=== PATIENT | male | born 1965 | race Caucasian/White ===

== ENCOUNTER 2019-03-03 21:19 | Inpatient (IN) | payer OTHER ==
[2019-03-03] MEDS ORDERED: ONDANSETRON 4 MG/2 ML VIAL IVPUSH ONE (22:11)
[2019-03-03] MEDS ORDERED: SODIUM CHLORIDE 0.9% 500 ML INFUS.BAG IV ONE (22:11)
[2019-03-03] MEDS ORDERED: ACETAMINOPHEN 1000 MG/100 ML VIAL (NON FORMULARY) IVPB ONE (22:11)
[2019-03-03] MEDS ORDERED: morphine CARPU-JECT 2 MG/1 ML DISP.SYRIN IVPUSH ONE (22:13)
--- NOTE | 2019-03-03 22:13 | PDOC ---
Attending Attestation - Resident Resident Name: Stacie Snyder - ED Attending Attestation I have performed the following: I have examined & evaluated the patient, The case was reviewed & discussed with the resident, I agree w/resident's findings & plan - HPI HPI: 03/03/19 22:11 Pt comes with 10 episodes of diarrhea and 2 small vomiting episodes. Ate a turkey sandwich from the [facility] that he thinks was bad; no Bundy. He feels like the lettuce is coming up, - Physicial Exam PE: 03/03/19 22:12 Pt has diffuse abd pain; 03/03/19 22:14 Tachycardic; no high pitched gassy sounds. Pt has clear lungs No rebound and no guarding in any quadrant Pt feels warm to the touch. (We will get a rectal temp.) - Medical Decision Making 03/03/19 22:35 Pt likely has food poisoning; we will hydrate and treat with pain meds and reeval once labs are back 03/04/19 00:19 Pt is feeling better after 1 L NSS and meds. He will be treated with another L of saline, as he has HR of 116; pt will be sent home once his HR comes down. 03/04/19 00:27 Pt remains tachycardic despite 2L saline. He has LLQ pain. This could be colitis. He will get a CT scan to r/o pathology. 03/04/19 02:29 Patient Name: DANIELLE العراقي THIS IS A PRELIMINARY REPORT FROM [facility] DATE OF SERVICE: 2019-03-04 01:02:58 IMAGES: [id number] EXAM: ABDOMEN \\T\\ PELVIS CT WITH CONTR HISTORY: "Rule out infectious cause" COMPARISON: None. FINDINGS: There is no bowel obstruction. Negative for diverticulitis or colitis. Negative for appendicitis. However, both the large and small bowel are fluid-filled with mildly hyperemic hernandez. This is nonspecific but can suggest a generalized gastroenteritis. No free intraperitoneal air or free fluid. Normal kidneys and urinary tracts and urinary bladder. Liver is slightly enlarged and fatty. Normal spleen. Normal pancreas. No obvious gallbladder abnormalities. Normal adrenal glands. Osseous structures are intact. 03/04/19 06:26 Pt will be admitted, as he is tachycardic despite 3L NSS. He appears unwell and coninues to have abdominal discomfort. He has gastrenteritis and swollen intestines. Heart Score/ECG Review - ECG Intrepretation Rhythm: Regular Rhythm - [place]: Normal - P and GA Prominent R with upright T in V1 (true posterior ID): No Delta Wave(s) Present: No WPW: No - QRS Poor R Wave Progression: No Q Wave Present: No - ST and T Early Repolarization: No Non Specific ST-T Wave changes: No Flattened T Waves: No Prolonged Q-T Interval: No - ECG Impressions Normal ECG: No Non-specific ST Elevation: No Ischemic Changes: No Tachycardia: Sinus Torsades agnes Pointes: No WPW: No
--- NOTE | 2019-03-03 22:21 | PDOC ---
History of Present Illness - General Chief Complaint: Pain Stated Complaint: ABDOMINAL PAIN Time Seen by Provider: 03/03/19 22:03 - History of Present Illness Initial Comments: Dipesh Carrizales is a 53yo man with a PMH of pre-DM who presents to the ED with diffuse cramping abdominal pain, watery diarrhea, and nausea/vomiting since this afternoon. He states that he was feeling well earlier in the day, but ate a turkey sandwich in the afternoon that he says he thinks had gone bad. After eating the sandwich, he reports that he had about 10 episodes of watery diarrhea throughout the afternoon and evening. The stool has been brown and non- bloody. He also has intermittent, brief, sharp/cramping pains that occur around his abdomen. There is no particular location that the pains occur more often. Mr Carrizales also reports nausea, though he says that he has only had 2 very small episodes of emesis. He denies any recent fevers/chills, known sick contacts, recent travel, URI symptoms, cough, chest pain, SOB, or other recent symptoms. Past History - Past Medical History Allergies/Adverse Reactions: Allergies Allergy/AdvReac Type Severity Reaction Status Date / Time No Known Allergies Allergy Verified 03/03/19 21:23 COPD: No - Psycho Social/Smoking Cessation Hx Smoking History: Never smoked Review of Systems - Review of Systems Comments:: General: No fevers, no chills, no weight or appetite change, no malaise HEENT: No changes in vision, no changes in hearing, no congestion, no sore throat CV: No chest pain, no palpitations, no LE edema Pulm: No SOB, no cough, no wheezing GI: See HPI : No frequency, no urgency, no dysuria Musc: No back pain, no joint swelling, no recent injury Skin: No rash, no lesions, no erythema Endo: No excessive thirst, no heat/cold intolerance Heme: No unusual bruising or bleeding, no swollen glands Neuro: No syncope, no numbness/tingling, no focal weakness Vasc: No claudication Psych: No recent change in mood, no SI or HI *Physical Exam - Vital Signs Last Vital Signs Temp Pulse Resp BP Pulse Ox 97.3 F L 105 H 18 129/81 97 03/03/19 21:20 03/03/19 21:20 03/03/19 21:20 03/03/19 21:20 03/03/19 21:20 - Physical Exam General: Uncomfortable but in no acute distress HEENT: Atraumatic, PERRL, EOMI, MMM, voice normal Cards: RRR, no murmur appreciated Pulm: Comfortable on room air, clear to auscultation bilaterally Abd: Soft, nondistended. No focal tenderness, no rebound, no rigidity, no guarding : No CVA tenderness Ext: Atraumatic. No LE edema. ROM intact. WWP Skin: Normal color, no rashes or lesions Neuro: A&Ox3, CN grossly intact, normal speech, motor/sensory grossly intact and symmetric Psych: Mood appropriate to situation ED Treatment Course - LABORATORY CBC & Chemistry Diagram: 03/03/19 22:40 03/03/19 22:40 Medical Decision Making - Medical Decision Making 03/03/19 22:12 Dipesh Carrizales is a 53yo man with a PMH of pre-DM who presents to the ED with intermittent, diffuse, brief abdominal pains, frequent non-bloody watery diarrhea, and nausea/vomiting since eating a turkey sandwich this afternoon. He denies any recent fevers/chills, known sick contacts, recent travel, URI symptoms, cough, chest pain, SOB, or other recent symptoms. - Most likely gastroenteritis v food poisoning. No focal abdominal pain, no fever, no peritoneal signs. Diarrhea more prevalent than vomiting. - CBC, CMP, lipase - IVF, IV acetaminophen, zofran for symptoms 03/03/19 23:52 - Labs without concerning abnormalities. Slight leukocytosis at 12, likely due to vomiting and diarrhea - EKG w/ sinus tachycardia. HR 116, normal axis, normal intervals, no ST changes - Pt feels well, drinking water without difficulty, asking to be discharged - Due to persistent tachycardia, will give additional 1L bolus and reassess vitals - To be signed out to Dr Carver for the remainder of his ED care. Discussed with Dr Reggie Snyder PGY2 Discharge - Discharge Information Problems reviewed: Yes Clinical Impression/Diagnosis: Gastroenteritis Condition: Stable Disposition: HOME - Admission No - Follow up/Referral Referrals: Asa Paez MD [Primary Care Provider] - - Patient Discharge Instructions Patient Printed Discharge Instructions: DI for Viral Gastroenteritis -- Adult Additional Instructions: Discharge Instructions: You were seen in the emergency department for abdominal pain, diarrhea, and nausea. You most likely have food poisoning or gastroenteritis. This should improve over the next day or two without any treatment. Home Care and Follow Up: - Make sure you are drinking plenty of fluids - Do not worry about eating solid foods for the next day or two. You may stick to liquids including water, juice, sports drinks, Pedialyte, soup, popsicles, applesauce, etc - When you start eating, try bland foods such as bread and rice initially - Avoid dairy products, caffeine, alcohol, spicy foods, and greasy or fatty foods as these can irritate your stomach - Make an appointment to see your regular doctor if you are not feeling better within a few days - Seek immediate care for worsening symptoms, continued vomiting or diarrhea, inability to drink, dehydration, or any other medical emergency. - Post Discharge Activity
[2019-03-03] MEDS ORDERED: ACETAMINOPHEN INJECTION 100 ML IVPB ONE (22:24)
[2019-03-03] MEDS ORDERED: MORPHINE SULFATE 2 MG/ML VIAL ONE (22:24)
[2019-03-03] MEDS ORDERED: ONDANSETRON 4 MG/2 ML VIAL ONE (22:25)
[2019-03-03 22:55] LABS: BASO % 0.7 % (0-2.0); HEMATOCRIT 46.8 % (35.4-49); HEMOGLOBIN 15.9 GM/dL (11.7-16.9); LYMPH % 3.1 % (8-40); MCH 29.9 pg (25.7-33.7); MCHC 33.9 g/dl (32.0-35.9); MEAN CELL VOLUME 88.2 fl (80-96); MEAN PLT VOLUME 7.3 fl (7.5-11.1); MONO % 3.5 % (3.8-10.2); NEUT % 91.7 % (42.8-82.8); PLATELET COUNT 226 K/MM3 (134-434); RBC 5.31 M/mm3 (4.00-5.60); RDW 13.4 % (11.9-15.9)
[2019-03-03 23:22] LABS: ALBUMIN 4.4 g/dl (3.4-5.0); BILIRUBIN,TOTAL 0.8 mg/dL (0.2-1); BLOOD UREA NITROGEN 22.8 mg/dL (7-18); CALCIUM 9.1 mg/dL (8.5-10.1); CREATININE 1.3 mg/dL (0.55-1.3); TOT PROT 7.9 g/dl (6.4-8.2)
[2019-03-03] MEDS ORDERED: SODIUM CHLORIDE 1,000 ML IV STA (23:35)
--- NOTE | 2019-03-04 00:06 | PDOC ---
*Physical Exam - Vital Signs Last Vital Signs Temp Pulse Resp BP Pulse Ox 97.3 F L 105 H 18 129/81 97 03/03/19 21:20 03/03/19 21:20 03/03/19 21:20 03/03/19 21:20 03/03/19 21:20 ED Treatment Course - LABORATORY CBC & Chemistry Diagram: 03/07/19 10:45 03/07/19 10:45 - ADDITIONAL ORDERS Additional order review: Laboratory Results 03/03/19 03/03/19 22:40 22:40 Sodium 142 Potassium 4.0 Chloride 106 Carbon Dioxide 27 Anion Gap 8 BUN 22.8 H Creatinine 1.3 Est GFR (CKD-EPI)AfAm 71.69 Est GFR (CKD-EPI)NonAf 61.86 Random Glucose 115 H Calcium 9.1 Total Bilirubin 0.8 AST 32 ALT 49 Alkaline Phosphatase 61 Total Protein 7.9 Albumin 4.4 Lipase 106 03/03/19 22:40 RBC 5.31 MCV 88.2 MCHC 33.9 RDW 13.4 MPV 7.3 L Neutrophils % 91.7 H Lymphocytes % 3.1 L Monocytes % 3.5 L Eosinophils % 1.0 Basophils % 0.7 - Medications Given in the ED: ED Medications Discontinued Medications Generic Name Dose Route Start Last Admin Trade Name Rommelq PRN Reason Stop Dose Admin Acetaminophen 1,000 mg 03/03/19 22:11 03/03/19 22:52 Ofirmev Injection - IVPB 03/03/19 22:12 1,000 mg ONCE ONE Administration Morphine Sulfate 2 mg 03/03/19 22:13 03/03/19 22:51 Morphine Injection - IVPUSH 03/03/19 22:14 2 mg ONCE ONE Administration Ondansetron HCl 4 mg 03/03/19 22:11 03/03/19 22:52 Zofran Injection IVPUSH 03/03/19 22:12 4 mg ONCE ONE Administration Sodium Chloride 1,000 ml 03/03/19 22:11 03/03/19 22:53 Normal Saline - IV 03/03/19 22:12 1,000 ml ONCE ONE Administration Medical Decision Making - Medical Decision Making 03/04/19 04:53 Dipesh Carrizales is a 53yo man with a PMH of pre-DM who presents to the ED with diffuse cramping abdominal pain, watery diarrhea, and nausea/vomiting since this afternoon. Patient was reassessed. Thus far, the patient has received 3 L of NS with persistence of tachycardia. I ascertained the patient had a HR of 112 bpm after 3 liters at 4:30 am. The patient has continued abdominal pain and on physical exam continues to have pain throughout the 4 quadrants despite using tylenol 1 gram, morphine 2 mg, and toradol 30 mg. Will admit the patient for persistent tachycardia in the setting of dehydration with intractable pain. 03/04/19 04:54 Discharge - Discharge Information Problems reviewed: Yes Clinical Impression/Diagnosis: Gastroenteritis Condition: Stable Disposition: HOME - Follow up/Referral - Patient Discharge Instructions - Post Discharge Activity
[2019-03-04 01:48] LABS: ANISOCYTOSIS 0; HELMET CELLS 0; HOWELL-JOLLY BODIES 0; MACROCYTOSIS 0; OVALOCYTE 0; PLATELET ESTIMATE NORMAL; ROULEAU 0; SICKELED CELLS 0; TARGET CELLS 0; TEAR DROP CELLS 0; TOXIC GRANULATION 0
[2019-03-04] MEDS ORDERED: morphine CARPU-JECT 2 MG/1 ML DISP.SYRIN IVPUSH ONE (02:27)
[2019-03-04] MEDS ORDERED: KETOROLAC TROMETHAMINE 30 MG/1 ML VIAL IVPUSH ONE (02:31)
[2019-03-04] MEDS ORDERED: KETOROLAC TROMETHAMINE 30 MG/1 ML VIAL ONE (02:45)
[2019-03-04] MEDS ORDERED: SODIUM CHLORIDE 1,000 ML IV STA ×2 (03:20→04:53)
--- NOTE | 2019-03-04 05:36 | PN ---
Teaching Attending Note Name of Resident: Joseph Catherine ATTENDING PHYSICIAN STATEMENT I saw and evaluated the patient. I reviewed the resident's note and discussed the case with the resident. I agree with the resident's findings and plan as documented. SUBJECTIVE: Patient is a 53 year old man with a PMH of pre-DM who presents to the ER with diffuse cramping abdominal pain, watery diarrhea, and nausea/vomiting since this afternoon. He states that he was feeling well earlier in the day, but ate a turkey sandwich in the afternoon that he says he thinks had gone bad. After eating the sandwich, he reports that he had about 10 episodes of watery diarrhea throughout the afternoon and evening. The stool has been brown and non- bloody. He also has intermittent, brief, sharp/cramping pains that occur around his abdomen. There is no particular location that the pains occur more often. He also reports nausea, though he says that he has only had 2 very small episodes of vomiting. He denies any recent fevers, chills, known sick contacts, recent travel, URI symptoms, cough, chest pain or SOB. Denies tobacco, alcohol or illicit drug use. OBJECTIVE: Alert Vital Signs Period Temp Pulse Resp BP Sys/Mccain Pulse Ox Last 24 Hr 97.3 F 105 18 129/81 97 HEENT: No Jaundice, eye redness or discharge, PERRLA, EOMI. Normocephalic, atraumatic. External ears are normal and hearing is grossly intact. No nasal discharge. Neck: Supple, nontender. No palpable adenopathy or thyromegaly. No JVD Chest: Good effort. Clear to auscultation and percussion. Heart: Regular. No S3, rub or murmur Abdomen: Not distended, soft, nontender and no HSM. No rebound or guarding. Normal bowel sounds. Ext: Peripheral pulses intact. No leg edema. Skin: Warm and dry. No petechiae, rash or ecchymosis. Neuro: Alert. Oriented x3. CN 2-12 grossly intact. Sensation grossly intact in all four extremities and DTR are symmetric. Psych: Appropriate mood and affect. Good insight. Current Medications Generic Name Dose Route Start Last Admin Trade Name Freq PRN Reason Stop Dose Admin Sodium Chloride 1,000 mls @ 1,000 mls/hr 03/04/19 04:53 Normal Saline - IV 03/04/19 05:52 ASDIR STA Abnormal Lab Results 03/03/19 03/03/19 22:40 22:40 WBC 12.0 H MPV 7.3 L Absolute Neuts (auto) 11.0 H Neutrophils % 91.7 H Neutrophils % (Manual) 88.0 H Lymphocytes % 3.1 L Lymphocytes % (Manual) 1.0 L Monocytes % 3.5 L Monocytes % (Manual) 2 L BUN 22.8 H Random Glucose 115 H ASSESSMENT AND PLAN: 1. Food poisoning/Gastroenteritis - Findings consistent with food poisoning. CT scan of abdomen/pelvis report - "There is no bowel obstruction. Negative for diverticulitis or colitis. Negative for appendicitis. However, both the large and small bowel are fluid-filled with mildly hyperemic hernandez. This is nonspecific but can suggest a generalized gastroenteritis. No free intraperitoneal air or free fluid." Will continue IV Ringers lactate and withhold any antimotility agents for now. Getting Ketorolac, Zofran and Tylenol. Keep him NPO, get UA and consult GI. Send any stool samples for studies. Monitor and replete electrolytes. Will continue comprehensive care for all of patients comorbid conditions. 2. Prediabetes - Will check HbA1c and implement sliding scale insulin regimen. Provide comprehensive diabetes care with patient teaching and counseling about the importance of adherence to prescribed diabetes regimen, euglycemia, eye care and foot care. 3. Obesity Counseled on the risks associated with obesity. Will provide patient all the necessary assistance, counseling and positive reinforcement to facilitate weight loss. Consult child care centre manager. 4. DVT prophylaxis - Lovenox 40 mg SQ q 24 hours. 5. Advance directives - Full code
--- NOTE | 2019-03-04 07:18 | HP ---
CHIEF COMPLAINT: abdominal pain+diarrhea PCP: HISTORY OF PRESENT ILLNESS: Pt is a 53 y/o M with a past medical history of prediabetes and HLD who presented to [facility] due to diarrhea and abdominal pain. Pt endorses that around 3 pm yesterday afternoon, he consumed a turkey sandwich; approximately 2 hours afterwards, pt began to have multiple episodes of diarrhea (" too many to count ") associated with abdominal pain. Pt also endorses nausea and chills however denies fevers. Diarrhea is described as watery and non-bloody. Denies recent travel, upper respiratory tract symptoms, cough, shortness of breath, or chest pain. PMH as above SocialHx Denies T/A/D SurgHx- Denies FH- Father DM,HTN, Throat Cancer. Mother DM,HTN NKDA ER course was notable for: (1) CTAP---> Both large and small bowel are fluid-filled with mildly hyperemic hernnadez. this is a nonspecific but can suggest a generalized gastroenteritis (2) WBC--> 12 (3) HOME MEDICATIONS: REVIEW OF SYSTEMS CONSTITUTIONAL: PRESENT: chillS HEENT: Absent: rhinorrhea, nasal congestion, throat pain, throat swelling, difficulty swallowing, mouth swelling, ear pain, eye pain, visual changes CARDIOVASCULAR: Absent: chest pain, syncope, palpitations, irregular heart rate, lightheadedness , peripheral edema RESPIRATORY: Absent: cough, shortness of breath, dyspnea with exertion, orthopnea, wheezing, stridor, hemoptysis GASTROINTESTINAL: PRESENT abdominal pain, nausea, diarrhea GENITOURINARY: Absent: dysuria, frequency, urgency, hesitancy, hematuria, flank pain, genital pain MUSCULOSKELETAL: Absent: myalgia, arthralgia, joint swelling, back pain, neck pain SKIN: Absent: rash, itching, pallor HEMATOLOGIC/IMMUNOLOGIC: Absent: easy bleeding, easy bruising, lymphadenopathy, frequent infections ENDOCRINE: Absent: unexplained weight gain, unexplained weight loss, heat intolerance, cold intolerance NEUROLOGIC: Absent: headache, focal weakness or paresthesias, dizziness, unsteady gait, seizure, mental status changes, bladder or bowel incontinence PSYCHIATRIC: Absent: anxiety, depression, suicidal or homicidal ideation, hallucinations. PHYSICAL EXAMINATION Vital Signs - 24 hr 03/03/19 21:20 Temperature 97.3 F L Pulse Rate 105 H Respiratory 18 Rate Blood Pressure 129/81 O2 Sat by Pulse 97 Oximetry (%) GENERAL: NAD HEAD: Normal with no signs of trauma. EYES: EOMI Sclera Clear EARS, NOSE, THROAT: MMM LUNGS: CTA b/l HEART: RRR S1S2 ABDOMEN: Tenderness to deep palpation, BS Hyperactive MUSCULOSKELETAL: FROM LOWER EXTREMITIES: no CCE NEUROLOGICAL: Cranial nerves II-XII intact. Normal speech. PSYCHIATRIC: Cooperative. Good eye contact. Appropriate mood and affect. SKIN: Warm, dry, normal turgor, no rashes or lesions noted, normal capillary refill. Laboratory Results - last 24 hr 03/03/19 03/03/19 03/03/19 22:40 22:40 22:40 WBC 12.0 H RBC 5.31 Hgb 15.9 Hct 46.8 MCV 88.2 MCH 29.9 MCHC 33.9 RDW 13.4 Plt Count 226 MPV 7.3 L Absolute Neuts (auto) 11.0 H Neutrophils % 91.7 H Neutrophils % (Manual) 88.0 H Band Neutrophils % 7.0 Lymphocytes % 3.1 L Lymphocytes % (Manual) 1.0 L Monocytes % 3.5 L Monocytes % (Manual) 2 L Eosinophils % 1.0 Eosinophils % (Manual) 1.0 Basophils % 0.7 Basophils % (Manual) 0.0 Myelocytes % (Man) 0 Promyelocytes % (Man) 0 Blast Cells % (Manual) 0 Nucleated RBC % 0 Metamyelocytes 0 Hypochromia 0 Toxic Granulation 0 Dohle Bodies 0 Platelet Estimate Normal Polychromasia 0 Poikilocytosis 0 Basophilic Stippling 0 Anisocytosis 0 Microcytosis 0 Macrocytosis 0 Spherocytes 0 Sickle Cells 0 Target Cells 0 Tear Drop Cells 0 Ovalocytes 0 Stomatocytes 0 Helmet Cells 0 [place] Bodies 0 [place] Rings 0 Shanda Cells 0 Acanthocytes (Spur) 0 Rouleaux 0 Fragmented RBCs 0 Schistocytes 0 Sodium 142 Potassium 4.0 Chloride 106 Carbon Dioxide 27 Anion Gap 8 BUN 22.8 H Creatinine 1.3 Est GFR (CKD-EPI)AfAm 71.69 Est GFR (CKD-EPI)NonAf 61.86 Random Glucose 115 H Calcium 9.1 Total Bilirubin 0.8 AST 32 ALT 49 Alkaline Phosphatase 61 Total Protein 7.9 Albumin 4.4 Lipase 106 ASSESSMENT/PLAN: Pt is a 53 y/o M with a past medical history of prediabetes and HLD who presented to [facility] due to diarrhea and abdominal pain #Gastroenteritis - LR@125cc -There is no bowel obstruction. Negative for diverticulitis or colitis. Negative for appendicitis. However, both the large and small bowel are fluid- filled with mildly hyperemic hernandez. This is nonspecific but can suggest a generalized gastroenteritis. No free intraperitoneal air or free fluid." -Repeat CBC to asses for leukocytosis -No anti-motility agents as culprit may be bacterial -NPO -GI Consult -Stool for Ova and parasites, Stool for ova and parasites, WBCs, -Blood Cultures # Prediabetes -Will check HbA1c - sliding scale insulin regimen. #FEN -LR@125cc/hr Monitor electorlytes NPO # DVT ppx: Hep Sq TID #Dispo: Med-Surg Visit type - Emergency Visit Emergency Visit: Yes ED Registration Date: 03/04/19 Care time: The patient presented to the Emergency Department on the above date and was hospitalized for further evaluation of their emergent condition. - New Patient This patient is new to me today: Yes Date on this admission: 03/04/19 - Critical Care Critical Care patient: No ATTENDING PHYSICIAN STATEMENT I saw and evaluated the patient. I reviewed the resident's note and discussed the case with the resident. I agree with the resident's findings and plan as documented. SUBJECTIVE: OBJECTIVE: ASSESSMENT AND PLAN:
[2019-03-04 08:47] LABS: BASO % 0.4 % (0-2.0); EOS % 0.1 % (0-4.5); HEMATOCRIT 40.1 % (35.4-49); HEMOGLOBIN 13.6 GM/dL (11.7-16.9); LYMPH % 3.4 % (8-40); MCH 30.1 pg (25.7-33.7); MEAN CELL VOLUME 88.6 fl (80-96); MEAN PLT VOLUME 7.1 fl (7.5-11.1); MONO % 4.7 % (3.8-10.2); NEUT % 91.4 % (42.8-82.8); PLATELET COUNT 182 K/MM3 (134-434); RBC 4.52 M/mm3 (4.00-5.60); WHITE BLOOD COUNT 6.7 K/mm3 (4.0-10.0)
[2019-03-04 09:16] LABS: ALBUMIN 3.2 g/dl (3.4-5.0); BILIRUBIN,TOTAL 0.8 mg/dL (0.2-1); BLOOD UREA NITROGEN 21.6 mg/dL (7-18); CREATININE 1.1 mg/dL (0.55-1.3); MAGNESIUM 1.9 mg/dL (1.8-2.4); POTASSIUM 3.5 mmol/L (3.5-5.1)
[2019-03-04 09:17] LABS: CALCIUM 6.9 mg/dL (8.5-10.1)
[2019-03-04 09:35] LABS: INR 1.08 (0.83-1.09); PROTHROMBIN TIME (PATIENT) 12.7 SEC (9.7-13.0)
[2019-03-04 09:38] LABS: ACTIVATED PTT 30.6 SECONDS (25.2-36.5)
[2019-03-04 09:50] LABS: ANISOCYTOSIS 0; MACROCYTOSIS 0; PLATELET ESTIMATE NORMAL
[2019-03-04] MEDS ORDERED: LACTATED RINGERS SOLUTION 1000 ML INFUS.BAG IV SCH (10:00)
[2019-03-04] MEDS ORDERED: ACETAMINOPHEN 325 MG TABLET (FP) PO PRN (10:30)
--- NOTE | 2019-03-04 11:32 | PN ---
Progress Note, Physician Chief Complaint: He still complained of diarrhea History of Present Illness: 53 y/o M with a past medical history of prediabetes and HLD who presented to [facility] due to diarrhea and abdominal pain. Pt endorses that around 3 pm yesterday afternoon, he consumed a turkey sandwich; approximately 2 hours afterwards, on arrival T WBC elevated repeat trended normal not on any antibiotic he still complained of diarrhea. - Current Medication List Current Medications: Active Medications Acetaminophen (Tylenol -) 650 mg PO Q4H PRN PRN Reason: PAIN LEVEL 1-5 Famotidine/Sodium Chloride (Pepcid 20 Mg Premixed Ivpb -) 20 mg in 50 mls @ 100 mls/hr IVPB BID NIC Ketorolac Tromethamine (Toradol Injection -) 30 mg IVPUSH Q6H PRN PRN Reason: PAIN LEVEL 6-10 Lactated Ringer's (Lactated Ringers Solution) 125 ml IV DAILY NIC Ondansetron HCl (Zofran Injection) 4 mg IVPUSH Q6H PRN PRN Reason: NAUSEA - Objective Vital Signs: Vital Signs Temperature 99 F 03/04/19 08:50 Pulse Rate 109 H 03/04/19 08:50 Respiratory Rate 18 03/04/19 08:50 Blood Pressure 104/60 03/04/19 08:50 O2 Sat by Pulse Oximetry (%) 100 03/04/19 08:50 General: Middle-aged man , comfortable, not in distress, complaint of diarrhea and abdominal pain HEENT; mucous membranes moist, no anemia, no jaundice, PERRLA, no nystagmus Neck: No JVD, supple, no bruit, thyroid palpably normal, normal carotid pulsations. Chest: Nontender, clear to auscultation bilaterally. CVS: S1-S2 regular/irregular no murmur/gallop/rub Abdomen: Nondistended, diffuse mild tenderness, soft, bowel sounds present. Extremities: No edema., No cough tenderness, pulses present MANAGER OF CASE MANAGEMENT: AO X3 , no gross motor sensory deficit Labs: CBC, BMP 03/04/19 08:38 03/04/19 08:38 INR, PTT INR 1.08 (0.83-1.09) 03/04/19 08:38 Problem List - Problems (1) Gastroenteritis Assessment/Plan: Most likely due to preformed toxin, initial elevated WBC trended normal, afebrile, no indication for antibiotic, continue supportive care, IV hydration, pain control Zofran/Pepcid for nausea and vomiting. Problems reviewed: Yes Code(s): K52.9 - NONINFECTIVE GASTROENTERITIS AND COLITIS, UNSPECIFIED (2) Nausea & vomiting Assessment/Plan: Continue Zofran 4 mg every 6 hours as needed for nausea, famotidine 20 mg IV piggyback every 12 hours. Problems reviewed: Yes Code(s): R11.2 - NAUSEA WITH VOMITING, UNSPECIFIED
[2019-03-04] MEDS: KETOROLAC TROMETHAMINE 30 MG/1 ML VIAL IVPUSH PRN ×2 (12:28→19:03)
[2019-03-04] MEDS: ONDANSETRON 4 MG/2 ML VIAL IVPUSH PRN ×2 (12:28→21:04)
[2019-03-04 18:03] VITALS: BMI 32.1
[2019-03-04] MEDS: FAMOTIDINE 20 MG/50 ML IVPB 20 MG/50 ML MG IVPB SCH (21:29)
[2019-03-04] MEDS: LACTATED RINGERS SOLUTION 1,000 ML/1,000 ML INFUS.BAG IV SCH (22:49)
[2019-03-05] MEDS ORDERED: ACETAMINOPHEN 1000 MG/100 ML VIAL (NON FORMULARY) IVPB ONE (00:51)
[2019-03-05] MEDS ORDERED: SODIUM CHLORIDE 500 ML IV STA (00:52)
--- NOTE | 2019-03-05 01:01 | EKG ---
Test Reason : Blood Pressure : / mmHG Vent. Rate : 116 BPM Atrial Rate : 116 BPM P-R Int : 166 ms QRS Dur : 088 ms QT Int : 322 ms P-R-T Axes : 058 073 006 degrees QTc Int : 447 ms SINUS TACHYCARDIA POSSIBLE LEFT ATRIAL ENLARGEMENT BORDERLINE ECG NO PREVIOUS ECGS AVAILABLE Confirmed by BAILEY THAPA MD ([id number]) on 03/05/2019 1:01:43 AM Referred By: Confirmed By:BAILEY THAPA MD
[2019-03-05 08:26] LABS: BASO % 0.3 % (0-2.0); EOS % 1.8 % (0-4.5); HEMATOCRIT 37.6 % (35.4-49); HEMOGLOBIN 13.2 GM/dL (11.7-16.9); LYMPH % 6.3 % (8-40); MCH 30.7 pg (25.7-33.7); MCHC 35.1 g/dl (32.0-35.9); MEAN CELL VOLUME 87.6 fl (80-96); MEAN PLT VOLUME 7.3 fl (7.5-11.1); MONO % 3.5 % (3.8-10.2); NEUT % 88.1 % (42.8-82.8); PLATELET COUNT 152 K/MM3 (134-434); RBC 4.29 M/mm3 (4.00-5.60); RDW 13.1 % (11.9-15.9); WHITE BLOOD COUNT 7.9 K/mm3 (4.0-10.0)
[2019-03-05 08:32] LABS: BLOOD UREA NITROGEN 15.9 mg/dL (7-18); CREATININE 1.1 mg/dL (0.55-1.3); POTASSIUM 3.1 mmol/L (3.5-5.1)
[2019-03-05] MEDS: FAMOTIDINE 20 MG/50 ML IVPB 20 MG/50 ML MG IVPB SCH ×2 (09:57→22:19)
[2019-03-05] MEDS: KCL 10 MEQ IVPB 10 MEQ/100 ML INFUS.BAG IVPB SCH ×5 (09:57→23:46)
[2019-03-05 12:45] LABS: URINE APPEARANCE CLEAR; URINE BILIRUBIN NEGATIVE (NEGATIVE); URINE COLOR YELLOW; URINE GLUCOSE (UA) NEGATIVE (NEGATIVE); URINE KETONE NEGATIVE (NEGATIVE); URINE LEUK ESTERASE NEGATIVE (NEGATIVE); URINE NITRITE NEGATIVE (NEGATIVE); URINE PROTEIN TRACE (NEGATIVE); URINE UROBILINOGEN 0.2 mg/dL (0.2-1.0)
--- NOTE | 2019-03-05 15:17 | PN ---
Physical Exam: SUBJECTIVE: Patient seen and examined. He reports weakness that is improved from admission. He has been able to eat somewhat but has associated lower abdominal pain with and watery diarrhea after he eats. He denies chest pain, shortness of breath, nausea, or vomiting. OBJECTIVE: Vital Signs Period Temp Pulse Resp BP Sys/Mccain Pulse Ox Last 24 Hr 98.1 F-102.9 F 94-125 18-22 96-141/51-88 95-96 GENERAL: The patient is awake, alert, and fully oriented, in no acute distress. HEAD: Normal with no signs of trauma. EYES: PERRL, extraocular movements intact, conjunctiva clear. ENT: Ears normal, nares patent, moist mucous membranes. NECK: Trachea midline, full range of motion LUNGS: Clear to auscultation bilaterally HEART: Regular rate and rhythm, no murmur ABDOMEN: Soft, nontender, distended, normoactive bowel sounds, no guarding, no rebound EXTREMITIES: Warm, well-perfused, no edema. NEUROLOGICAL: Cranial nerves II through XII grossly intact. Normal speech. PSYCH: Normal mood, normal affect. SKIN: Warm, dry, normal turgor, no rashes Laboratory Results - last 24 hr 03/05/19 03/05/19 03/05/19 00:58 07:15 07:15 WBC 7.9 RBC 4.29 Hgb 13.2 Hct 37.6 MCV 87.6 MCH 30.7 MCHC 35.1 RDW 13.1 Plt Count 152 MPV 7.3 L Absolute Neuts (auto) 7.0 Neutrophils % 88.1 H Lymphocytes % 6.3 L D Monocytes % 3.5 L Eosinophils % 1.8 D Basophils % 0.3 Nucleated RBC % 0 Sodium 141 Potassium 3.1 L Chloride 110 H Carbon Dioxide 22 Anion Gap 9 BUN 15.9 Creatinine 1.1 Est GFR (CKD-EPI)AfAm 87.74 Est GFR (CKD-EPI)NonAf 75.70 Random Glucose 98 Lactic Acid 1.2 Calcium 7.0 L Urine Color Urine Appearance Urine pH Ur Specific [place] Urine Protein Urine Glucose (UA) Urine Ketones Urine Blood Urine Nitrite Urine Bilirubin Urine Urobilinogen Ur Leukocyte Esterase 03/05/19 10:25 WBC RBC Hgb Hct MCV MCH MCHC RDW Plt Count MPV Absolute Neuts (auto) Neutrophils % Lymphocytes % Monocytes % Eosinophils % Basophils % Nucleated RBC % Sodium Potassium Chloride Carbon Dioxide Anion Gap BUN Creatinine Est GFR (CKD-EPI)AfAm Est GFR (CKD-EPI)NonAf Random Glucose Lactic Acid Calcium Urine Color Yellow Urine Appearance Clear Urine pH 6.0 Ur Specific [place] 1.020 Urine Protein Trace Urine Glucose (UA) Negative Urine Ketones Negative Urine Blood Negative Urine Nitrite Negative Urine Bilirubin Negative Urine Urobilinogen 0.2 Ur Leukocyte Esterase Negative Active Medications Generic Name Dose Route Start Last Admin Trade Name Freq PRN Reason Stop Dose Admin Acetaminophen 650 mg 03/04/19 10:30 03/04/19 16:26 Tylenol - PO 650 mg Q4H PRN Administration PAIN LEVEL 1-5 Famotidine/Sodium Chloride 20 mg in 50 mls @ 100 mls/hr 03/04/19 22:00 09:57 Pepcid 20 Mg Premixed Ivpb - IVPB 100 mls/hr BID NIC Administration Lactated Ringer's 1,000 ml in 1,000 mls @ 125 mls/hr 03/04/19 22:15 03/04/19 22:49 Lactated Ringers Solution IV 125 mls/hr ASDIR NIC Administration Ketorolac Tromethamine 30 mg 03/04/19 10:29 03/04/19 19:03 Toradol Injection - IVPUSH 30 mg Q6H PRN Administration PAIN LEVEL 6-10 Ondansetron HCl 4 mg 03/04/19 11:29 03/04/19 21:04 Zofran Injection IVPUSH 4 mg Q6H PRN Administration NAUSEA ASSESSMENT/PLAN: Mr. Carrizales is a 53y/o male with pre-diabetes and HLD who presents with diarrhea and abdominal pain. #gastroenteritis, viral vs bacterial -LR 125mL/hr -Zofran -pepcid -stool studies pending- possible cryptosporidium -blood cultures pending #HLD #pre-DM DVT Ppx Lovenox 40mg FEN LR 125mL/hr monitor K regular diet Visit type - Emergency Visit Emergency Visit: Yes ED Registration Date: 03/04/19 Care time: The patient presented to the Emergency Department on the above date and was hospitalized for further evaluation of their emergent condition. - New Patient This patient is new to me today: Yes Date on this admission: 03/05/19 - Critical Care Critical Care patient: No - Discharge Referral Referred to [facility] Med P.C.: No ATTENDING PHYSICIAN STATEMENT I saw and evaluated the patient. I reviewed the resident's note and discussed the case with the resident. I agree with the resident's findings and plan as documented. SUBJECTIVE: OBJECTIVE: ASSESSMENT AND PLAN:
[2019-03-05] MEDS: LACTATED RINGERS SOLUTION 1,000 ML/1,000 ML INFUS.BAG IV SCH (16:30)
--- NOTE | 2019-03-05 16:44 | PN ---
Progress Note (short form) - Note Progress Note: patients stool came back + for crypto. spoke to patient regarding HIV status- he stated he was tested 5 years ago and was negative. patient consented to being tested for HIV on this admission.,
[2019-03-05] MEDS: ENOXAPARIN NA (PORCINE) 40 MG/0.4 ML DISP.SYRIN SQ SCH (17:25)
--- NOTE | 2019-03-05 17:46 | PN ---
Teaching Attending Note Name of Resident: Angie Enriquez ATTENDING PHYSICIAN STATEMENT I saw and evaluated the patient. I reviewed the resident's note and discussed the case with the resident. I agree with the resident's findings and plan as documented. SUBJECTIVE: Patient stated that after having a turkey sandwich developed severe diarrhea, came in for further care, had a fever of 101, overnight. Vital Signs Temperature 98.9 F 03/05/19 15:16 Pulse Rate 99 H 03/05/19 15:16 Respiratory Rate 20 03/05/19 15:16 Blood Pressure 124/69 03/05/19 15:16 O2 Sat by Pulse Oximetry (%) 96 03/05/19 09:00 GENERAL: The patient is awake, alert, and fully oriented, in no acute distress. HEAD: Normal with no signs of trauma. EYES: PERRL, extraocular movements intact, sclera anicteric, conjunctiva clear. ENT: Ears normal, oropharynx clear without exudates, moist mucous membranes. NECK: Trachea midline, full range of motion, supple. LUNGS: Breath sounds equal, clear to auscultation bilaterally, no wheezes, no crackles, no accessory muscle use. HEART: Regular rate and rhythm, S1, S2 without murmur, rub or gallop. ABDOMEN: Soft, nontender, nondistended, normoactive bowel sounds, no guarding, no rebound, no hepatosplenomegaly, no masses. EXTREMITIES: 2+ pulses, warm, well-perfused, no edema. NEUROLOGICAL: Cranial nerves II through XII grossly intact. Normal speech, gait not observed. PSYCH: Normal mood, normal affect. SKIN: Warm, dry, normal turgor, no rashes or lesions noted CBCD WBC 7.9 K/mm3 (4.0-10.0) 03/05/19 07:15 RBC 4.29 M/mm3 (4.00-5.60) 03/05/19 07:15 Hgb 13.2 GM/dL (11.7-16.9) 03/05/19 07:15 Hct 37.6 % (35.4-49) 03/05/19 07:15 MCV 87.6 fl (80-96) 03/05/19 07:15 MCHC 35.1 g/dl (32.0-35.9) 03/05/19 07:15 RDW 13.1 % (11.9-15.9) 03/05/19 07:15 Plt Count 152 K/MM3 (134-434) 03/05/19 07:15 MPV 7.3 fl (7.5-11.1) L 03/05/19 07:15 CMP Sodium 141 mmol/L (136-145) 03/05/19 07:15 Potassium 3.1 mmol/L (3.5-5.1) L 03/05/19 07:15 Chloride 110 mmol/L (98-107) H 03/05/19 07:15 Carbon Dioxide 22 mmol/L (21-32) 03/05/19 07:15 Anion Gap 9 MMOL/L (8-16) 03/05/19 07:15 BUN 15.9 mg/dL (7-18) 03/05/19 07:15 Creatinine 1.1 mg/dL (0.55-1.3) 03/05/19 07:15 Random Glucose 98 mg/dL (74-106) 03/05/19 07:15 Calcium 7.0 mg/dL (8.5-10.1) L 03/05/19 07:15 Total Bilirubin 0.8 mg/dL (0.2-1) 03/04/19 08:38 AST 21 U/L (15-37) 03/04/19 08:38 ALT 38 U/L (13-61) 03/04/19 08:38 Alkaline Phosphatase 43 U/L (45-117) L 03/04/19 08:38 Total Protein 6.0 g/dl (6.4-8.2) L 03/04/19 08:38 Albumin 3.2 g/dl (3.4-5.0) L 03/04/19 08:38 Current Medications Generic Name Dose Route Start Last Admin Trade Name Freq PRN Reason Stop Dose Admin Acetaminophen 650 mg 03/04/19 10:30 03/04/19 16:26 Tylenol - PO 650 mg Q4H PRN Administration PAIN LEVEL 1-5 Enoxaparin Sodium 40 mg 03/05/19 15:45 03/05/19 17:25 Lovenox - SQ Not Given DAILY NIC Famotidine/Sodium Chloride 20 mg in 50 mls @ 100 mls/hr 03/04/19 22:00 09:57 Pepcid 20 Mg Premixed Ivpb - IVPB 100 mls/hr BID NIC Administration Lactated Ringer's 1,000 ml in 1,000 mls @ 125 mls/hr 03/04/19 22:15 03/05/19 16:30 Lactated Ringers Solution IV 125 mls/hr ASDIR NIC Administration Potassium Chloride 10 meq in 100 mls @ 100 mls/hr 03/05/19 16:45 Potassium Chloride 10 Meq Premix Ivpb - IVPB 03/05/19 19:44 Q60M NIC Ketorolac Tromethamine 30 mg 03/04/19 10:29 03/04/19 19:03 Toradol Injection - IVPUSH 30 mg Q6H PRN Administration PAIN LEVEL 6-10 Ondansetron HCl 4 mg 03/04/19 11:29 03/04/19 21:04 Zofran Injection IVPUSH 4 mg Q6H PRN Administration NAUSEA Home Medications Medication Instructions Recorded NK [No Known Home Medication] 03/04/19 Microbiology 03/05/19 14:18 Stool Cryptosporidium Antigen - Final 03/05/19 14:18 Stool Giardia Antigen (CRIS) - Final Assessment and plan: Patient is a 53y/o male with pre-diabetes and HLD who presents with diarrhea and abdominal pain after eating a turkey sandwich. #Acute Gastroenteritis: positive for Crypto antigen , as per patient neg HIV 5yrs ago, will repeat the test, patient consented to the test , continue IVF 125mL/hr continue to minitor. #Acute Hypokalemia: 3 runs of K, check mag and phos. #HLD: continue home meds #pre-DM: SS with coverage DVT Ppx: Lovenox 40mg
[2019-03-05 19:05] LABS: BLOOD UREA NITROGEN 14.5 mg/dL (7-18); CALCIUM 7.4 mg/dL (8.5-10.1); POTASSIUM 3.1 mmol/L (3.5-5.1)
[2019-03-06] MEDS: KCL 10 MEQ IVPB 10 MEQ/100 ML INFUS.BAG IVPB SCH ×5 (01:06→23:04)
[2019-03-06] MEDS: LACTATED RINGERS SOLUTION 1,000 ML/1,000 ML INFUS.BAG IV SCH ×2 (04:14→22:01)
[2019-03-06 08:32] LABS: BASO % 0.6 % (0-2.0); EOS % 5.9 % (0-4.5); HEMATOCRIT 38.9 % (35.4-49); HEMOGLOBIN 13.3 GM/dL (11.7-16.9); LYMPH % 18.6 % (8-40); MCH 29.9 pg (25.7-33.7); MCHC 34.3 g/dl (32.0-35.9); MEAN CELL VOLUME 87.1 fl (80-96); MEAN PLT VOLUME 7.5 fl (7.5-11.1); MONO % 8.8 % (3.8-10.2); NEUT % 66.1 % (42.8-82.8); PLATELET COUNT 163 K/MM3 (134-434); RBC 4.47 M/mm3 (4.00-5.60); RDW 13.4 % (11.9-15.9); WHITE BLOOD COUNT 5.2 K/mm3 (4.0-10.0)
[2019-03-06 09:22] LABS: BILIRUBIN,TOTAL 0.6 mg/dL (0.2-1); BLOOD UREA NITROGEN 11.6 mg/dL (7-18); CALCIUM 7.8 mg/dL (8.5-10.1); MAGNESIUM 2.1 mg/dL (1.8-2.4); PHOSPHOROUS 2.2 mg/dL (2.5-4.9); POTASSIUM 3.1 mmol/L (3.5-5.1); TOT PROT 5.8 g/dl (6.4-8.2)
[2019-03-06] MEDS ORDERED: NAPH,MB-DB/K PH,MBDB POWDER PACKET PO ONE (09:45)
[2019-03-06] MEDS: FAMOTIDINE 20 MG/50 ML IVPB 20 MG/50 ML MG IVPB SCH ×2 (10:35→22:19)
[2019-03-06] MEDS: ENOXAPARIN NA (PORCINE) 40 MG/0.4 ML DISP.SYRIN SQ SCH (10:36)
--- NOTE | 2019-03-06 13:13 | PN ---
Teaching Attending Note Name of Resident: Angie Enriquez ATTENDING PHYSICIAN STATEMENT I saw and evaluated the patient. I reviewed the resident's note and discussed the case with the resident. I agree with the resident's findings and plan as documented. SUBJECTIVE: Patient stated that after having a turkey sandwich developed severe diarrhea, came in for further care, had a fever of 101, overnight. Denies having any further disrrhea , feel comfortable. Vital Signs Temperature 98.7 F 03/06/19 10:21 Pulse Rate 83 03/06/19 10:21 Respiratory Rate 20 03/06/19 10:21 Blood Pressure 108/52 L 03/06/19 10:21 O2 Sat by Pulse Oximetry (%) 97 03/06/19 09:00 GENERAL: The patient is awake, alert, and fully oriented, in no acute distress. HEAD: Normal with no signs of trauma. EYES: PERRL, extraocular movements intact, sclera anicteric, conjunctiva clear. ENT: Ears normal, oropharynx clear without exudates, moist mucous membranes. NECK: Trachea midline, full range of motion, supple. LUNGS: Breath sounds equal, clear to auscultation bilaterally, no wheezes, no crackles, no accessory muscle use. HEART: Regular rate and rhythm, S1, S2 without murmur, rub or gallop. ABDOMEN: Soft, nontender, nondistended, normoactive bowel sounds, no guarding, no rebound, no hepatosplenomegaly, no masses. EXTREMITIES: 2+ pulses, warm, well-perfused, no edema. NEUROLOGICAL: Cranial nerves II through XII grossly intact. Normal speech, gait not observed. PSYCH: Normal mood, normal affect. SKIN: Warm, dry, normal turgor, no rashes or lesions noted CBCD WBC 5.2 K/mm3 (4.0-10.0) 03/06/19 07:45 RBC 4.47 M/mm3 (4.00-5.60) 03/06/19 07:45 Hgb 13.3 GM/dL (11.7-16.9) 03/06/19 07:45 Hct 38.9 % (35.4-49) 03/06/19 07:45 MCV 87.1 fl (80-96) 03/06/19 07:45 MCHC 34.3 g/dl (32.0-35.9) 03/06/19 07:45 RDW 13.4 % (11.9-15.9) 03/06/19 07:45 Plt Count 163 K/MM3 (134-434) 03/06/19 07:45 MPV 7.5 fl (7.5-11.1) 03/06/19 07:45 CMP Sodium 141 mmol/L (136-145) 03/06/19 07:45 Potassium 3.1 mmol/L (3.5-5.1) L 03/06/19 07:45 Chloride 107 mmol/L (98-107) 03/06/19 07:45 Carbon Dioxide 26 mmol/L (21-32) 03/06/19 07:45 Anion Gap 7 MMOL/L (8-16) L 03/06/19 07:45 BUN 11.6 mg/dL (7-18) 03/06/19 07:45 Creatinine 1.0 mg/dL (0.55-1.3) 03/06/19 07:45 Random Glucose 84 mg/dL (74-106) 03/06/19 07:45 Calcium 7.8 mg/dL (8.5-10.1) L 03/06/19 07:45 Total Bilirubin 0.6 mg/dL (0.2-1) 03/06/19 07:45 AST 83 U/L (15-37) H 03/06/19 07:45 ALT 185 U/L (13-61) H 03/06/19 07:45 Alkaline Phosphatase 40 U/L (45-117) L 03/06/19 07:45 Total Protein 5.8 g/dl (6.4-8.2) L 03/06/19 07:45 Albumin 3.0 g/dl (3.4-5.0) L 03/06/19 07:45 Microbiology Current Medications Generic Name Dose Route Start Last Admin Trade Name Freq PRN Reason Stop Dose Admin Acetaminophen 650 mg 03/04/19 10:30 03/04/19 16:26 Tylenol - PO 650 mg Q4H PRN Administration PAIN LEVEL 1-5 Enoxaparin Sodium 40 mg 03/05/19 15:45 03/06/19 10:36 Lovenox - SQ 40 mg DAILY NIC Administration Famotidine/Sodium Chloride 20 mg in 50 mls @ 100 mls/hr 03/04/19 22:00 10:35 Pepcid 20 Mg Premixed Ivpb - IVPB 100 mls/hr BID NIC Administration Lactated Ringer's 1,000 ml in 1,000 mls @ 125 mls/hr 03/04/19 22:15 03/06/19 04:14 Lactated Ringers Solution IV 125 mls/hr ASDIR NIC Administration Ketorolac Tromethamine 30 mg 03/04/19 10:29 03/04/19 19:03 Toradol Injection - IVPUSH 30 mg Q6H PRN Administration PAIN LEVEL 6-10 Ondansetron HCl 4 mg 03/04/19 11:29 03/04/19 21:04 Zofran Injection IVPUSH 4 mg Q6H PRN Administration NAUSEA Home Medications Medication Instructions Recorded NK [No Known Home Medication] 03/04/19 03/05/19 14:18 Stool Cryptosporidium Antigen - Final 03/05/19 14:18 Stool Giardia Antigen (CRIS) - Final Assessment and plan: Patient is a 53y/o male with pre-diabetes and HLD who presents with diarrhea and abdominal pain after eating a turkey sandwich. #Acute Gastroenteritis: positive for Crypto antigen , as per patient neg HIV 5yrs ago, will repeat the test, patient consented to the test , continue IVF 125mL/hr continue to minitor. #Acute Hypokalemia: 3 runs of K, check mag and phos. #HLD: continue home meds #pre-DM: SS with coverage DVT Ppx: Lovenox 40mg
--- NOTE | 2019-03-06 15:09 | PN ---
Physical Exam: SUBJECTIVE: Patient seen and examined. He reports diarrhea overnight but is more formed stool and less watery. He denies chills, fever, chest pain, abdominal pain, nausea, or vomiting. He has been tolerating diet but prefers liquids. OBJECTIVE: Vital Signs Period Temp Pulse Resp BP Sys/Mccain Pulse Ox Last 24 Hr 98.7 F-99.1 F 81-99 18-20 108-124/46-69 96-97 GENERAL: The patient is awake, alert, and fully oriented, in no acute distress. HEAD: Normal with no signs of trauma. EYES: PERRL, extraocular movements intact, conjunctiva clear. ENT: Ears normal, nares patent, moist mucous membranes. NECK: Trachea midline, full range of motion LUNGS: Clear to auscultation bilaterally HEART: Regular rate and rhythm, no murmur ABDOMEN: Soft, nontender, distended, normoactive bowel sounds, no guarding, no rebound EXTREMITIES: Warm, well-perfused, no edema. NEUROLOGICAL: Cranial nerves II through XII grossly intact. Normal speech. PSYCH: Normal mood, normal affect. SKIN: Warm, dry, normal turgor, no rashes Laboratory Results - last 24 hr 03/05/19 03/06/19 03/06/19 17:55 07:45 07:45 WBC 5.2 RBC 4.47 Hgb 13.3 Hct 38.9 MCV 87.1 MCH 29.9 MCHC 34.3 RDW 13.4 Plt Count 163 MPV 7.5 Absolute Neuts (auto) 3.4 Neutrophils % 66.1 D Lymphocytes % 18.6 D Monocytes % 8.8 D Eosinophils % 5.9 H D Basophils % 0.6 Nucleated RBC % 0 Sodium 140 141 Potassium 3.1 L 3.1 L Chloride 109 H 107 Carbon Dioxide 22 26 Anion Gap 9 7 L BUN 14.5 11.6 Creatinine 1.0 1.0 Est GFR (CKD-EPI)AfAm 98.46 98.46 Est GFR (CKD-EPI)NonAf 84.95 84.95 Random Glucose 105 84 Calcium 7.4 L 7.8 L Phosphorus 2.2 L Magnesium 2.1 Total Bilirubin 0.6 AST 83 H ALT 185 H Alkaline Phosphatase 40 L Total Protein 5.8 L Albumin 3.0 L Active Medications Generic Name Dose Route Start Last Admin Trade Name Freq PRN Reason Stop Dose Admin Acetaminophen 650 mg 03/04/19 10:30 03/04/19 16:26 Tylenol - PO 650 mg Q4H PRN Administration PAIN LEVEL 1-5 Enoxaparin Sodium 40 mg 03/05/19 15:45 03/06/19 10:36 Lovenox - SQ 40 mg DAILY NIC Administration Famotidine/Sodium Chloride 20 mg in 50 mls @ 100 mls/hr 03/04/19 22:00 10:35 Pepcid 20 Mg Premixed Ivpb - IVPB 100 mls/hr BID NIC Administration Lactated Ringer's 1,000 ml in 1,000 mls @ 125 mls/hr 03/04/19 22:15 03/06/19 04:14 Lactated Ringers Solution IV 125 mls/hr ASDIR NIC Administration Ketorolac Tromethamine 30 mg 03/04/19 10:29 03/04/19 19:03 Toradol Injection - IVPUSH 30 mg Q6H PRN Administration PAIN LEVEL 6-10 Ondansetron HCl 4 mg 03/04/19 11:29 03/04/19 21:04 Zofran Injection IVPUSH 4 mg Q6H PRN Administration NAUSEA ASSESSMENT/PLAN: Mr. Carrizales is a 53y/o male with pre-diabetes and HLD who presents with diarrhea and abdominal pain. #gastroenteritis, cryptosporidium -LR 125mL/hr -Zofran -pepcid -stool studies negative, except for cryptosporidium -blood cultures prelim negative -HIV pending- last test negative 5 years ago #hypophosphatemia -replete -monitor #hypokalemia -replete -monitor #HLD #pre-DM DVT Ppx Lovenox 40mg FEN LR 125mL/hr monitor K regular diet Visit type - Emergency Visit Emergency Visit: Yes ED Registration Date: 03/04/19 Care time: The patient presented to the Emergency Department on the above date and was hospitalized for further evaluation of their emergent condition. - New Patient This patient is new to me today: No - Critical Care Critical Care patient: No - Discharge Referral Referred to [facility] Med P.C.: No ATTENDING PHYSICIAN STATEMENT I saw and evaluated the patient. I reviewed the resident's note and discussed the case with the resident. I agree with the resident's findings and plan as documented. SUBJECTIVE: OBJECTIVE: ASSESSMENT AND PLAN:
[2019-03-07] MEDS: LACTATED RINGERS SOLUTION 1,000 ML/1,000 ML INFUS.BAG IV SCH (06:45)
[2019-03-07] MEDS: FAMOTIDINE 20 MG/50 ML IVPB 20 MG/50 ML MG IVPB SCH (10:39)
[2019-03-07] MEDS: ENOXAPARIN NA (PORCINE) 40 MG/0.4 ML DISP.SYRIN SQ SCH (10:44)
[2019-03-07 11:12] LABS: HEMATOCRIT 39.5 % (35.4-49); HEMOGLOBIN 13.9 GM/dL (11.7-16.9); MCH 30.5 pg (25.7-33.7); MCHC 35.1 g/dl (32.0-35.9); MEAN CELL VOLUME 86.7 fl (80-96); MEAN PLT VOLUME 7.7 fl (7.5-11.1); PLATELET COUNT 186 K/MM3 (134-434); RBC 4.56 M/mm3 (4.00-5.60); RDW 12.9 % (11.9-15.9); WHITE BLOOD COUNT 3.9 K/mm3 (4.0-10.0)
[2019-03-07 11:46] LABS: ALBUMIN 3.2 g/dl (3.4-5.0); BILIRUBIN,TOTAL 0.7 mg/dL (0.2-1); CALCIUM 8.4 mg/dL (8.5-10.1); PHOSPHOROUS 2.5 mg/dL (2.5-4.9); POTASSIUM 3.5 mmol/L (3.5-5.1); TOT PROT 6.5 g/dl (6.4-8.2)
[2019-03-07] MEDS ORDERED: POTASSIUM CHLORIDE TABS 20 MEQ TABLET.ER (FP) PO ONE (14:24)
[2019-03-07 15:54] VITALS: BP 118/69; PULSE 78; TEMP 98.4
--- NOTE | 2019-03-07 15:58 | DS ---
Physical Exam: SUBJECTIVE: Patient seen and examined. He reports normal appetite, and decreased diarrhea with more formed stool. He denies fever, chills, chest pain, shortness of breath, abdominal pain, nausea, or vomiting. OBJECTIVE: Vital Signs Period Temp Pulse Resp BP Sys/Mccain Pulse Ox Last 24 Hr 98.4 F-99.1 F 72-89 18-20 108-117/59-68 98 PHYSICAL EXAM GENERAL: The patient is awake, alert, and fully oriented, in no acute distress. HEAD: Normal with no signs of trauma. EYES: PERRL, extraocular movements intact, conjunctiva clear. ENT: Ears normal, nares patent, moist mucous membranes. NECK: Trachea midline, full range of motion LUNGS: Clear to auscultation bilaterally HEART: Regular rate and rhythm, no murmur ABDOMEN: Soft, nontender, distended, normoactive bowel sounds, no guarding, no rebound EXTREMITIES: Warm, well-perfused, no edema. NEUROLOGICAL: Cranial nerves II through XII grossly intact. Normal speech. PSYCH: Normal mood, normal affect. SKIN: Warm, dry, normal turgor, no rashes LABS Laboratory Results - last 24 hr 03/04/19 03/05/19 03/06/19 15:08 17:55 16:15 WBC RBC Hgb Hct MCV MCH MCHC RDW Plt Count MPV Sodium Potassium Chloride Carbon Dioxide Anion Gap BUN Creatinine Est GFR (CKD-EPI)AfAm Est GFR (CKD-EPI)NonAf Random Glucose Calcium Phosphorus Magnesium Total Bilirubin AST ALT Alkaline Phosphatase Total Protein Albumin Stool O & P [place] HIV 1&2 Ag/Ab, 4th Gen Non reactive HIV 1&2 Antibody Screen Negative HIV P24 Antigen Negative O & P Permanent Slide Final report 03/07/19 03/07/19 10:45 10:45 WBC 3.9 L RBC 4.56 Hgb 13.9 Hct 39.5 MCV 86.7 MCH 30.5 MCHC 35.1 RDW 12.9 Plt Count 186 MPV 7.7 Sodium 141 Potassium 3.5 Chloride 106 Carbon Dioxide 25 Anion Gap 10 BUN 13.0 Creatinine 1.0 Est GFR (CKD-EPI)AfAm 98.46 Est GFR (CKD-EPI)NonAf 84.95 Random Glucose 99 Calcium 8.4 L Phosphorus 2.5 Magnesium 2.0 Total Bilirubin 0.7 AST 45 H ALT 141 H Alkaline Phosphatase 42 L Total Protein 6.5 Albumin 3.2 L Stool O & P [place] HIV 1&2 Ag/Ab, 4th Gen HIV 1&2 Antibody Screen HIV P24 Antigen O & P Permanent Slide HOSPITAL COURSE: Mr. Carrizales is a 53y/o male with pre-diabetes and HLD who presents with diarrhea and abdominal pain. He had leukocytosis at presentation which resolved. He was given IV fluids, Zofran, and Pepcid. Pt had decreased episodes of diarrhea as well as increase in appetite. Electrolytes were replenished. Stool studies were submitted and pt tested positive for cryptosporidium. 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 HIV testing was negative. Blood cx negative. Date of Admission:03/04/19 Date of Discharge: 03/07/19 Minutes to complete discharge: 35 Discharge Summary Problems reviewed: Yes Reason For Visit: INTRACTABLE PAIN,GASTROENTERITIS,TACHYCARDIA Current Active Problems Gastroenteritis (Acute) Nausea & vomiting (Acute) Condition: Stable - Instructions Diet, Activity, Other Instructions: YOUR VISIT: You came to the hospital with complaints of nausea/vomiting and were found to have gastroenteritis. We gave you IV fluids and supplements. You are improved. MEDICATIONS: Take Tylenol as directed on the bottle for pain. FOLLOW UP: Dr. Paez, primary care, in one week after discharge. OTHER INSTRUCTIONS: Return to the emergency room or call 911 if you have worsening diarrhea, abdominal pain, fever above 101, chest pain, difficulty breathing, or extreme muscle pain. Referrals: Yon Rainey MD [Staff Physician] - 1 Month Aas Paez MD [Primary Care Provider] - Disposition: HOME - Home Medications Comprehensive Discharge Medication List: Ambulatory Orders NK [No Known Home Medication] 03/04/19 This patient is new to me today: No Emergency Visit: Yes ED Registration Date: 03/04/19 Care time: The patient presented to the Emergency Department on the above date and was hospitalized for further evaluation of their emergent condition. Critical Care patient: No - Discharge Referral Referred to [facility] No ATTENDING PHYSICIAN STATEMENT I saw and evaluated the patient. I reviewed the resident's note and discussed the case with the resident. I agree with the resident's findings and plan as documented. SUBJECTIVE: OBJECTIVE: ASSESSMENT AND PLAN:
--- NOTE | 2019-03-07 18:20 | PN ---
Teaching Attending Note Name of Resident: Angie Enriquez ATTENDING PHYSICIAN STATEMENT I saw and evaluated the patient. I reviewed the resident's note and discussed the case with the resident. I agree with the resident's findings and plan as documented. SUBJECTIVE: Patient is comfortable with no acute distress. No further diarrhea. Vital Signs Temperature 98.4 F 03/07/19 14:00 Pulse Rate 78 03/07/19 14:00 Respiratory Rate 18 03/07/19 14:00 Blood Pressure 118/69 03/07/19 14:00 O2 Sat by Pulse Oximetry (%) 98 03/07/19 09:00 GENERAL: The patient is awake, alert, and fully oriented, in no acute distress. HEAD: Normal with no signs of trauma. EYES: PERRL, extraocular movements intact, sclera anicteric, conjunctiva clear. ENT: Ears normal, oropharynx clear without exudates, moist mucous membranes. NECK: Trachea midline, full range of motion, supple. LUNGS: Breath sounds equal, clear to auscultation bilaterally, no wheezes, no crackles, no accessory muscle use. HEART: Regular rate and rhythm, S1, S2 without murmur, rub or gallop. ABDOMEN: Soft, nontender, nondistended, normoactive bowel sounds, no guarding, no rebound, no hepatosplenomegaly, no masses. EXTREMITIES: 2+ pulses, warm, well-perfused, no edema. NEUROLOGICAL: Cranial nerves II through XII grossly intact. Normal speech, gait not observed. PSYCH: Normal mood, normal affect. SKIN: Warm, dry, normal turgor, no rashes or lesions noted CBCD WBC 3.9 K/mm3 (4.0-10.0) L 03/07/19 10:45 RBC 4.56 M/mm3 (4.00-5.60) 03/07/19 10:45 Hgb 13.9 GM/dL (11.7-16.9) 03/07/19 10:45 Hct 39.5 % (35.4-49) 03/07/19 10:45 MCV 86.7 fl (80-96) 03/07/19 10:45 MCHC 35.1 g/dl (32.0-35.9) 03/07/19 10:45 RDW 12.9 % (11.9-15.9) 03/07/19 10:45 Plt Count 186 K/MM3 (134-434) 03/07/19 10:45 MPV 7.7 fl (7.5-11.1) 03/07/19 10:45 CMP Sodium 141 mmol/L (136-145) 03/07/19 10:45 Potassium 3.5 mmol/L (3.5-5.1) 03/07/19 10:45 Chloride 106 mmol/L (98-107) 03/07/19 10:45 Carbon Dioxide 25 mmol/L (21-32) 03/07/19 10:45 Anion Gap 10 MMOL/L (8-16) 03/07/19 10:45 BUN 13.0 mg/dL (7-18) 03/07/19 10:45 Creatinine 1.0 mg/dL (0.55-1.3) 03/07/19 10:45 Random Glucose 99 mg/dL (74-106) 03/07/19 10:45 Calcium 8.4 mg/dL (8.5-10.1) L 03/07/19 10:45 Total Bilirubin 0.7 mg/dL (0.2-1) 03/07/19 10:45 AST 45 U/L (15-37) H 03/07/19 10:45 ALT 141 U/L (13-61) H 03/07/19 10:45 Alkaline Phosphatase 42 U/L (45-117) L 03/07/19 10:45 Total Protein 6.5 g/dl (6.4-8.2) 03/07/19 10:45 Albumin 3.2 g/dl (3.4-5.0) L 03/07/19 10:45 Home Medications Medication Instructions Recorded NK [No Known Home Medication] 03/04/19 Microbiology 03/05/19 14:18 Stool Cryptosporidium Antigen - Final 03/05/19 14:18 Stool Giardia Antigen (CRIS) - Final Assessment and plan: Patient is a 53y/o male with pre-diabetes and HLD who presents with diarrhea and abdominal pain after eating a turkey sandwich. #Acute Gastroenteritis: positive for Crypto antigen ,repeat HIV test is negative , and was tested neg for HIV 5yrs ago. will dc the patient. home, with follow up visit with Dr. Rainey #Acute Hypokalemia: repleted #HLD: continue home meds #pre-DM: diet and lifestyle modifications was discussed with the patient dc patient home.
== END 2019-03-07 16:42 | disposition home or self-care (01) | DRG 392 ==
LOC: JER 21:19 → JERBED 03-04 06:27 → J5S 03-04 09:05
PROVIDERS: ADMIT Internal Medicine; ATTEND Internal Medicine
DX: K52.9 Noninfective gastroenteritis and colitis, unspecified (principal); E78.5 Hyperlipidemia, unspecified; E87.6 Hypokalemia; R00.0 Tachycardia, unspecified; E83.39 Other disorders of phosphorus metabolism; E66.9 Obesity, unspecified; Z68.32 Body mass index [BMI] 32.0-32.9, adult
CPT/HCPCS: 36415; 74177-TC; 76700-TC; 80048; 80053; 81003; 83605; 83690; 83735; 84100; 85025; 85027; 85610; 85730; 87040; 87045; 87046; 87177; 87186; 87205; 87209; 87328; 87329; 87389; 93005; 93010; 99284-25; J0131; J7030; Q9967

== ENCOUNTER 2021-12-08 14:33 | Emergency (ER) | payer OTHER ==
[2021-12-08 15:01] VITALS: BP 130/79; PULSE 76; RESP 17; TEMP 98.8; BMI 33.6
[2021-12-08] MEDS ORDERED: SODIUM CHLORIDE 1,000 ML IV STA (16:24)
[2021-12-08 17:08] LABS: BASO % 1.1 % (0-2.0); HEMATOCRIT 43.6 % (35.4-49); HEMOGLOBIN 14.7 GM/dL (11.7-16.9); LYMPH % 28.6 % (8-40); MCH 30.1 pg (25.7-33.7); MCHC 33.7 g/dl (32.0-35.9); MEAN CELL VOLUME 89.5 fl (80-96); MEAN PLT VOLUME 7.7 fl (7.5-11.1); MONO % 8.8 % (3.8-10.2); NEUT % 58.5 % (42.8-82.8); PLATELET COUNT 224 10^3/uL (134-434); RBC 4.87 M/mm3 (4.00-5.60); RDW 13.4 % (11.9-15.9); WHITE BLOOD COUNT 4.3 K/mm3 (4.0-10.0)
[2021-12-08 17:18] LABS: INR 1.04 (0.83-1.09)
[2021-12-08 17:20] LABS: ACTIVATED PTT 32.4 SECONDS (25.2-36.5)
[2021-12-08 17:30] LABS: ALBUMIN 3.9 g/dl (3.4-5.0)
[2021-12-08 17:31] LABS: BLOOD UREA NITROGEN 18.1 mg/dL (7-18)
[2021-12-08 17:33] LABS: CREATININE 1.5 mg/dL (0.55-1.3)
[2021-12-08 17:35] LABS: BILIRUBIN,TOTAL 0.5 mg/dL (0.2-1); TOT PROT 7.6 g/dl (6.4-8.2)
== END 2021-12-08 19:04 | disposition home or self-care (01) ==
LOC: JER 14:33
DX: R00.2 Palpitations (principal)
CPT/HCPCS: 36415; 71046-TC-FY; 80053; 84484; 85025; 85610; 85730; 93005; 93010; 99285-25